=== PATIENT | female | born 1945 | race Asian ===

== ENCOUNTER 2018-10-11 09:19 | Emergency (ER) | payer OTHER ==
[~2018-10-11] VITALS: Ht 142.2 cm; Wt 45.4 kg
[2018-10-11 09:21] VITALS: BP 163/78
--- NOTE | 2018-10-11 09:22 | NUR ---
BIBA FOR FALL X1 HOUR AGO FROM [facility]. AAOX3. PT REPORTS FALLING WALKING TO BATHROOM, HITTING BACK OF HEAD. PT DENIES PAIN ON THE HEAD. PT STATES L HIP PAIN 6/10. PER [facility] NO LOSS OF CONSCIOUSNESS, GCS 13 IS PT BASELINE. PERRLA, BRISK 3MM. NO SOB NOTED. EQUAL BILATERAL STRENGTH TO UPPER AND LOWER EXTREMITIES. PLACED ON UNIVERSITY PROFESSOR. HOB UP. BED SIDE RAILS UP X1. ON LOW BED POSITION, LOCKED. ER MADE AWARE OF PT STATUS. WILL CONTINUE TO MONITOR.
--- NOTE | 2018-10-11 09:22 | NUR ---
Note undone in EDM - 10/11/18 at 1004 by [facility] BIBA FOR FALL X1 HOUR AGO FROM [facility]. AAOX3. PT REPORTS FALLING WALKING TO BATHROOM, HITTING BACK OF HEAD. PT DENIES ANY PAIN AT THIS TIME. PER [facility] NO LOSS OF CONSCIOUSNESS, GCS 13 IS PT BASELINE. PERRLA, BRISK 3MM. NO SOB NOTED. EQUAL BILATERAL STRENGTH TO UPPER AND LOWER EXTREMITIES. PLACED ON RECLAMATION ENGINEER. HOB UP. BED SIDE RAILS UP X1. ON LOW BED POSITION, LOCKED. ER MADE AWARE OF PT STATUS.
[2018-10-11] MEDS ORDERED: AMLO5TAB PO (09:29)
[2018-10-11] MEDS ORDERED: DOCU100C16 PO (09:33)
[2018-10-11] MEDS ORDERED: OLAN2.5T1 PO (09:33)
[2018-10-11] MEDS ORDERED: LATA7.5D OP (09:33)
[2018-10-11] MEDS ORDERED: ASCO500T45 PO (09:33)
[2018-10-11] MEDS ORDERED: VENL37.55 PO (09:33)
[2018-10-11] MEDS ORDERED: FERR325E14 PO (09:33)
--- NOTE | 2018-10-11 09:35 | NUR ---
DR WILD AT BEDSIDE FOR PT EVALUATION.
--- NOTE | 2018-10-11 10:23 | NUR ---
PT GOING TO RADIALOGY AT THIS TIME.
[2018-10-11 10:33] LABS: BASOPHILS % (AUTO) 0.5 % (0.0-2.0); EOSINOPHILS % (AUTO) 0.2 % (0.0-4.0); HEMATOCRIT 39.6 % (36-48); HEMOGLOBIN 13.3 g/dL (12.0-16.0); LYMPHOCYTES # (AUTO) 1.1 K/uL (2.5-16.5); LYMPHOCYTES % (AUTO) 17.3 % (20.5-51.1); MEAN CORPUSCULAR HEMOGLOBIN 31 pg (27-31); MEAN CORPUSCULAR HGB CONC 34 g/dL (33-37); MEAN CORPUSCULAR VOLUME 91.2 fL (80-94); MONOCYTES # (AUTO) 0.3 K/uL (0.8-1.0); MONOCYTES % (AUTO) 5.2 % (1.7-9.3); NEUTROPHILS # (AUTO) 5.1 K/uL (1.8-7.7); NEUTROPHILS % (AUTO) 76.8 % (42.2-75.2); PLATELET COUNT (AUTO) 189 K/uL (140-450); RED BLOOD CELL COUNT(AUTO) 4.34 MIL/uL (4.20-5.40); RED CELL DISTRIBUTION WIDTH 13.7 % (11.6-13.7); WHITE BLOOD COUNT (AUTO) 6.6 K/uL (4.8-10.8)
[2018-10-11 10:36] LABS: APPEARANCE,URINE CLEAR (CLEAR); BILIRUBIN,URINE NEGATIVE (NEGATIVE); BLOOD, URINE NEGATIVE (NEGATIVE); COLOR,URINE YELLOW (YELLOW); LEUKOCYTE ESTERASE ,URINE NEGATIVE (NEGATIVE); NITRITE, URINE NEGATIVE (NEGATIVE); PH,URINE 6.5 (5.0-9.0); UGLUCOSE 3+ (NEGATIVE)
[2018-10-11 10:39] LABS: ANION GAP 13.6 (8-16); CARBON DIOXIDE 28.3 mmol/L (21-32); CHLORIDE 102 mmol/L (98-107); CREATININE 0.8 mg/dL (0.6-1.3); GLUCOSE 274 mg/dL (74-106); POTASSIUM 3.9 mmol/L (3.5-5.1); SODIUM SERUM 140 mmol/L (136-145); UREA NITROGEN, BLOOD 16 mg/dL (7-18)
[2018-10-11 10:49] LABS: RBC,URINE 0-5 /HPF (0-5)
--- NOTE | 2018-10-11 10:55 | NUR ---
DR WILD WANTED TO KNOW IF PT USES OXYGEN AT THE FACILITY. CALLED [facility] AND SPOKE TO JEANETTE, TRIAGE CLINICIAN, TO VERIFY IF PT USES OXYGEN AT THE FACILITY. PER JEANETTE, PT DOESN'T USE ANY OXYGEN.
--- NOTE | 2018-10-11 11:19 | NUR ---
DR WILD NEEDS CLARIFICATION FOR PT'S HX OF ANY CRANIAL SX. CALLED [facility] AT [phone] AND SPOKE TO JEANETTE, RECOVERY UNIT OPERATOR. PER JEANETTE, PT ONLY HAS A MEDICAL HX OF CHRONIC DEPRESSION, DEMENTIA AND HTN.
--- NOTE | 2018-10-11 13:56 | NUR ---
CALLED AND GAVE REPORT TO CHARGE NURSE AT [facility]
--- NOTE | 2018-10-11 13:57 | NUR ---
[facility] at bedside for transfer to [facility] ER.
[2018-10-11 14:08] VITALS: BP 134/74
--- NOTE | 2018-10-11 14:08 | NUR ---
Patient to be transferred to [facility]. Is being transferred due to HIGHER LEVEL OF CARE. Receiving facility has accepting physician and available space. ER physician has signed transfer form. Patient or responsible constitution party has agreed to transfer and signed form. Patient belongings inventoried and will be sent with patient. Copy of nursing notes, lab reports, EKG, Physicians Orders and X-rays to be sent with patient. Report called to ER CHARGE NURSE at receiving facility. [facility] ambulance service has been called for transfer. ETA is 20MIN.
--- NOTE | 2018-10-14 15:56 | NUR ---
ADDENDUM: URINE CULTURE RESULTS . PATIENT TRANSFERRED TO [facility]
== END 2018-10-11 14:08 | disposition short-term general hospital (02) ==
LOC: MED 09:19
DX: S06.2X9A Diffuse traumatic brain injury with loss of consciousness of unspecified duration, initial encounter (principal); G91.8 Other hydrocephalus; I10 Essential (primary) hypertension; F03.90 Unspecified dementia, unspecified severity, without behavioral disturbance, psychotic disturbance, mood disturbance, and anxiety; Z79.899 Other long term (current) drug therapy; W19.XXXA Unspecified fall, initial encounter; Y93.89 Activity, other specified; Y92.89 Other specified places as the place of occurrence of the external cause; Y99.8 Other external cause status
CPT/HCPCS: 36415; 70450; 71045; 72125; 73502; 80048; 81001; 82550; 85025; 87086; 87186; 99291

== ENCOUNTER 2019-07-16 18:49 | Emergency (ER) | payer OTHER ==
[~2019-07-16] VITALS: Ht 144.8 cm; Wt 46.7 kg
[~2019-07-16 18:49] MED LIST: AMLO5TAB PO; ASCO500T45 PO; DOCU100C16 PO; FERR325E14 PO; LATA7.5D OP; OLAN2.5T1 PO; VENL37.55 PO
--- NOTE | 2019-07-16 18:49 | NUR ---
PATIENT CURRY ([facility]) TO BED 1.
[2019-07-16 18:53] VITALS: BP 139/82
--- NOTE | 2019-07-16 19:15 | NUR ---
REPORT RECEIVED FROM BRENDON DOVER
--- NOTE | 2019-07-16 19:20 | NUR ---
73 YEAR OLD MALE COMPLAINS OF LEFT FOREHEAD ABRASION, PATIENT STATES THAT SHE WAS TRYING TO GO TO BATHROOM AND FELL DOWN X 1 HOUR AGO. VISIBLE REDDENED ABRASION ON LEFT SIDE OF FOREHEAD. PATIENT AOX1 TO NAME, GCS 14 (E4,V4,M6). PATIENT SPEECH DELAYED, LETHARGIC. WHEN ASKED QUESTION BY SENIOR INTERIOR DESIGNER PATIENT WOULD NOT RESPOND PROPERLY AND KEEP STATING "I FELL ONTO GROUND," UNABLE TO OBTAIN PMH, MEDICATIONS, OR ALLERGIES. BP 139/82, HR 83, SPO2 95%, RR 18. PATIENT ALERT AND AWAKE, BREATHING EVEN AND UNLABORED, SKIN WARM AND DRY. BED IN LOWEST POSITION, LOCKED, BED RAIL UPX2. INTERPRETATION SERVICE USED FOR CANTONESE LANGUAGE.
--- NOTE | 2019-07-16 19:25 | NUR ---
DR MAHARAJ AT BEDSIDE, STATES HE WANTS CODE BRAIN.
--- NOTE | 2019-07-16 19:35 | NUR ---
PATIENT TAKEN TO CT SCAN
--- NOTE | 2019-07-16 19:50 | NUR ---
PATIENT X RAY AT BEDSIDE
--- NOTE | 2019-07-16 19:55 | NUR ---
BLOOD LABS DRAWN FOR PATIENT
[2019-07-16 20:25] LABS: BASOPHILS % (AUTO) 0.3 % (0.0-2.0); EOSINOPHILS % (AUTO) 0.2 % (0.0-4.0); HEMATOCRIT 38.9 % (36-48); HEMOGLOBIN 12.7 g/dL (12.0-16.0); LYMPHOCYTES # (AUTO) 1.4 K/uL (2.5-16.5); MEAN CORPUSCULAR HEMOGLOBIN 30 pg (27-31); MEAN CORPUSCULAR HGB CONC 33 g/dL (33-37); MEAN CORPUSCULAR VOLUME 93.4 fL (80-94); MONOCYTES # (AUTO) 0.4 K/uL (0.8-1.0); MONOCYTES % (AUTO) 4.4 % (1.7-9.3); NEUTROPHILS # (AUTO) 8.3 K/uL (1.8-7.7); NEUTROPHILS % (AUTO) 81.1 % (42.2-75.2); PLATELET COUNT (AUTO) 236 K/uL (140-450); RED BLOOD CELL COUNT(AUTO) 4.16 MIL/uL (4.20-5.40); RED CELL DISTRIBUTION WIDTH 14.3 % (11.6-13.7); WHITE BLOOD COUNT (AUTO) 10.2 K/uL (4.8-10.8)
[2019-07-16 20:46] LABS: PROTHROMBIN TIME 9.3 secs (10.8-13.4)
[2019-07-16 20:53] LABS: ALBUMIN 3.4 g/dL (3.4-5.0); ANION GAP 10.2 (8-16); ASPARTATE AMINOTRANSFERASE 16 U/L (15-37); CARBON DIOXIDE 28.7 mmol/L (21-32); CHLORIDE 105 mmol/L (98-107); CREATININE 0.7 mg/dL (0.6-1.3); GLUCOSE 181 mg/dL (74-106); POTASSIUM 3.9 mmol/L (3.5-5.1); SODIUM SERUM 140 mmol/L (136-145); TOTAL BILIRUBIN 0.2 mg/dL (0.0-1.0); UREA NITROGEN, BLOOD 9 mg/dL (7-18)
--- NOTE | 2019-07-16 21:00 | NUR ---
PATIENT ALERT AND AWAKE, BREATHING EVEN AND UNLABORED
[2019-07-16 21:17] LABS: APPEARANCE,URINE HAZY (CLEAR); BILIRUBIN,URINE NEGATIVE (NEGATIVE); BLOOD, URINE 1+ (NEGATIVE); COLOR,URINE YELLOW (YELLOW); LEUKOCYTE ESTERASE ,URINE 3+ (NEGATIVE); NITRITE, URINE NEGATIVE (NEGATIVE); PH,URINE 7.5 (5.0-9.0); UGLUCOSE TRACE (NEGATIVE)
[2019-07-16 21:21] LABS: HYALINE CASTS, URINE 0-10 /LPF (None Seen); WBC,URINE 16-25 (MOD) /HPF (0-5)
--- NOTE | 2019-07-16 21:30 | NUR ---
PATIENT OK FOR DISCHARGE PER DR MAHARAJ
--- NOTE | 2019-07-16 21:49 | NUR ---
[facility] CALLED, STATED THEY WILL MEDICAL RECORDS ANALYST PATIENT AT [id number]
--- NOTE | 2019-07-16 21:58 | NUR ---
PATIENT FAMILY CALLED TWICE AND LEFT VOICE MESSAGE, UNABLE TO CONTACT
--- NOTE | 2019-07-16 22:56 | NUR ---
PATIENT ALERT AND AWAKE, BREATHING EVEN AND UNLABORED
--- NOTE | 2019-07-16 23:34 | NUR ---
PATIENT ALERT AND AWAKE, BREATHING EVEN AND UNLABORED
--- NOTE | 2019-07-17 00:15 | NUR ---
RECEIVED REPORT FROM ELVIS DOVER, BACK FROM BREAK
--- NOTE | 2019-07-17 00:26 | NUR ---
PATIENT RESTING WITH EYES CLOSED, BREATHING EVEN AND UNLABORED
--- NOTE | 2019-07-17 01:40 | NUR ---
PATIENT ALERT AND AWAKE, BREATHING EVEN AND UNLABORED
--- NOTE | 2019-07-17 01:50 | NUR ---
PATIENT ASSISTED IN EATING FOOD AND WATER
--- NOTE | 2019-07-17 03:44 | NUR ---
PATIENT ALERT AND AWAKE, BREATHING EVEN AND UNLABORED
[2019-07-17 04:44] VITALS: BP 140/75
--- NOTE | 2019-07-17 04:44 | NUR ---
Patient discharged with v/s stable. Written and verbal after care instructions ABOUT HEAD INJURY AND URINARY TRACT INFECTION given and explained. Patient alert, oriented and verbalized understanding of instructions. Ambulance Transport with to snf. All questions addressed prior to discharge. ID band removed. Patient advised to follow up with PMD. Rx of KEFLEX given. Patient educated on indication of medication including possible reaction and side effects. Opportunity to ask questions provided and answered.
== END 2019-07-17 04:44 ==
LOC: MED 18:49
DX: S09.90XA Unspecified injury of head, initial encounter (principal); N39.0 Urinary tract infection, site not specified; I10 Essential (primary) hypertension; Z79.899 Other long term (current) drug therapy; W19.XXXA Unspecified fall, initial encounter; Y93.89 Activity, other specified; Y92.098 Other place in other non-institutional residence as the place of occurrence of the external cause; Y99.8 Other external cause status
CPT/HCPCS: 36415; 70450; 71045; 72125; 80053; 81001; 85025; 85610; 87086; 99284; Q0092

== ENCOUNTER 2022-06-19 14:35 | Inpatient (IN) | payer OTHER, MEDICAID ==
[~2022-06-19] VITALS: Ht 149.9 cm; Wt 40.8 kg
[~2022-06-19 14:35] MED LIST changes: -ASCO500T45 PO; +ASCO500T95 PO; +DOCU-464 PO; -DOCU100C16 PO
--- NOTE | 2022-06-19 14:35 | NUR ---
BIBA BLS TO ER BED 3
--- NOTE | 2022-06-19 14:39 | NUR ---
PT RECEIVED, CARE ASSUMED. PT IS OBTUNDED, UNABLE TO MAKE NEEDS KNOWN. COGNITION IMAPARED.. NOTED LOW BP, . CONNECTED TO TELE MONITOR: SR 78. PLACED PT ON [place]G POSITION. WILL CONTINUE TO MONITOR
[2022-06-19 14:43] VITALS: BP 126/76
[2022-06-19] MEDS ORDERED: DEXT 5% /NACL 0.9% 1,000 ML IV ONE ×2 (15:05→17:10)
[2022-06-19 15:38] LABS: BASOPHILS # (AUTO) 0.1 K/uL (0.00-0.22); BASOPHILS % (AUTO) 1.1 % (0.0-2.0); EOSINOPHILS % (AUTO) 0.2 % (0.0-4.0); HEMATOCRIT 43.2 % (36-48); HEMOGLOBIN 13.9 g/dL (12.0-16.0); LYMPHOCYTES # (AUTO) 1.9 K/uL (2.5-16.5); LYMPHOCYTES % (AUTO) 22.3 % (20.5-51.1); MEAN CORPUSCULAR HEMOGLOBIN 31 pg (27-31); MEAN CORPUSCULAR HGB CONC 32 g/dL (33-37); MEAN CORPUSCULAR VOLUME 94.8 fL (80-94); MONOCYTES # (AUTO) 0.6 K/uL (0.8-1.0); NEUTROPHILS # (AUTO) 5.9 K/uL (1.8-7.7); NEUTROPHILS % (AUTO) 69.4 % (42.2-75.2); PLATELET COUNT (AUTO) 188 K/uL (140-450); RED BLOOD CELL COUNT(AUTO) 4.55 MIL/uL (4.20-5.40); RED CELL DISTRIBUTION WIDTH 14.4 % (11.6-13.7); WHITE BLOOD COUNT (AUTO) 8.5 K/uL (4.8-10.8)
--- NOTE | 2022-06-19 16:05 | NUR ---
PT ON [place] POSITION, IVF BOLUS RUNNING, WILL CONTINUE TO MONITOR
[2022-06-19 16:06] LABS: ALBUMIN 3.2 g/dL (3.4-5.0); ASPARTATE AMINOTRANSFERASE 12 U/L (15-37); CARBON DIOXIDE 28.6 mmol/L (21-32); CHLORIDE 127 mmol/L (98-107); CREATININE 0.6 mg/dL (0.6-1.3); GLUCOSE 116 mg/dL (74-106); POTASSIUM 3.6 mmol/L (3.5-5.1); TOTAL BILIRUBIN 0.6 mg/dL (0.0-1.0); UREA NITROGEN, BLOOD 39 mg/dL (7-18)
[2022-06-19 16:17] LABS: SODIUM SERUM 164 mmol/L (136-145)
[2022-06-19 16:36] LABS: BILIRUBIN,URINE NEGATIVE (NEGATIVE); BLOOD, URINE NEGATIVE (NEGATIVE); LEUKOCYTE ESTERASE ,URINE NEGATIVE (NEGATIVE); NITRITE, URINE NEGATIVE (NEGATIVE); UGLUCOSE NEGATIVE (NEGATIVE)
[2022-06-19 16:51] LABS: APPEARANCE,URINE CLEAR (CLEAR)
[2022-06-19 16:52] LABS: COLOR,URINE YELLOW (YELLOW)
[2022-06-19] MEDS ORDERED: NOREPINEPHRINE 4 MG in DEXTROSE 5% 250 ML IV ONE (17:30)
[2022-06-19] MEDS ORDERED: NOREPINEPHRINE 4 MG/4 ML VIAL IV ONE (18:03)
--- NOTE | 2022-06-19 18:17 | NUR ---
STARTED LEVAPHED DRIP @ 5 MCG. WILL CONTINUE TO MONITOR
--- NOTE | 2022-06-19 19:13 | NUR ---
KEEP ON PRESSORS UNTIL FAMILY ARRIVES, THEN SWITCH TO COMFORT MEASURES PER .
--- NOTE | 2022-06-19 19:32 | NUR ---
Assumed care of pt and pt is in bed resting with no s/s of distress. Pt responds to painful stimuli. Pt not responding to any questions. Has heel floaters in place. A 20g IV on right hand no infiltration noted. Has Levophed running at 5mcg/min. BP at 79/25. pt is DNR. Family in route.
--- NOTE | 2022-06-19 20:30 | NUR ---
FAMILY MEMBERS ARRIVED AND HAVE BEEN BROUGHT BACK, NEPHEW STATES OTHER FAMILY MEMBERS WILL BE COMING BY
--- NOTE | 2022-06-19 22:03 | NUR ---
SPOKE TO MANUEL AND FAMILY MEMBERS ABOUT STARTING COMFORT MEASURES. DR. VELEZ AWARE. ORDERS CARRIED OUT.
--- NOTE | 2022-06-19 22:09 | NUR ---
PER PRESSORS CAN BE D/C, START MORPHINE DRIP. NO OTHER ORDERS.
[2022-06-19] MEDS ORDERED: MORPHINE SULFATE 10 MG/ML VIAL ONE (22:37)
--- NOTE | 2022-06-19 22:39 | NUR ---
Patient will be admitted to care of Tiffanie DOVER. Admited to TELE. Will go to room 128A. Belongings list completed. Report to Tiffanie DOVER.
--- NOTE | 2022-06-20 00:08 | NUR ---
RECEIVED FROM ED COMFORT MEASURES ONLY STAGE II AT [place] PICTURE TAKEN MORPHINE GTT IN PLACE WILL CONTINUE TO MONITOR AND ASSESS
[2022-06-20 04:00] VITALS: BP 115/70
--- NOTE | 2022-06-20 06:46 | NUR ---
COMFORT MEASURES OBSERVED NO SIGNIFICANT CHANGES NOTED AT THIS TIME
[2022-06-20 08:00] VITALS: BP 139/76
[2022-06-20 12:00] VITALS: BP 143/67
--- NOTE | 2022-06-20 12:00 | NUR ---
DISCHARGE PLANNING: PATIENT IS A 76 YEAR OLD FEMALE ADMITTED TO THE [facility]/ED ON 06/19/2022 DUE TO PATIENT DECLINED ON MENTAL STATUS AND LEVEL OF CARE. PATIENT WAS ADMITTED WITH ONLY COMFORT MEASURES. SW ATTEMPTED TO MEET WITH PATIENT AT BEDSIDE TO DISCUSS AND GATHER HER COLLATERAL INFORMATION. PATIENT WAS NOT AWAKE AND ALERT UNABLE TO PROVIDE HER OWN INFORMATION. THEREFORE; SW LEFT ROOM AND CONTACTED PATIENT'S NIECES VIA TELEPHONIC CALL MANUEL BARNES AT AND GERMÁN OSBORNE AT . SW DISCUSS AND GATHER PATIENT'S COLLATERAL INFORMATION, PER PATIENT'S NIECES SHE HAS BEEN LIVING AT [facility], [place] FOR ABOUT 4 YEARS UNDER THE CARE AND MONITORING OF THE ASSISTING LIVING STAFF, WITH MEDICATIONS, SAFETY AND MEMORY CARE, ALSO WITH [employer]URANCE WITH MEDICAL CARE AND THE NIECES AND FAMILY REPORTED BEEN REALLY INVOLVED WITH PATIENT CARE. PER NIECES REPORT PATIENT DECLINED IN LEVEL OF CARE VERY QUICK IN A MATTER OF DAYS AND PATIENT WHEN SHE ADMITTED WAS PLACE IN COMFORT MEASURES. NELDA DISCUSSED WITH NIECES AND FAMILY ABOUT MORTUARY OF THEIR CHOICE AND PLAN FOR ARRANGEMENTS, SW EXPLAINED TO NIECES THAT [facility] IS A SMALL H[facility]PITAL AND THAT PATIENT MUST BE [employer] [employer] AFTER PASSING AND IF THEY WILL NEED RESOURCES PROVIDED BY NELDA. PER PATIENT'S NIECES, PATIENT HAS ALREADY PURCHASE A PLOT AT [employer] AND THEY WILL BE PICKING PATIENT. NELDA THANKED STAPLETON OF PATIENT'S NIECES FOR ALL THEIR INFORMATION AND ENDED THE CALL. NELDA/UTE WILL FOLLOW UP NEEDED.
[2022-06-20] MEDS: MORPHINE SULFATE 50 MG in NACL 0.9% 45 ML IV PRN (15:40)
[2022-06-20 16:00] VITALS: BP 109/58
--- NOTE | 2022-06-20 17:43 | NUR ---
PER MD NOTE: THE PATIENT'S FAMILY DECIDED TO MAKE PATIENT DNR AND PT ON COMFORT MEASURES ONLY AT THIS TIME WILL DISCONTINUE NUTRITION ASSESSMENTS AND FOLLOW [employer] RD WILL REMAIN AVAILABLE FOR CONSULTS NEEDS AND WILL RESTART NUTRITION ASSESSMENT IF REQUESTED [address]
--- NOTE | 2022-06-20 19:10 | NUR ---
REPORT GIVEN TO PM NURSE FOR CONTINUITY OF CARE. PT IS RESTING IN BED, RESPIRATIONS EVEN AND UL ON RA, NO S/S OF PAIN/DISCOMFORT. MORPHINE DRIP INFUSING TO RH PER PROTOCOL.
[2022-06-20 20:00] VITALS: BP 87/47
--- NOTE | 2022-06-20 20:30 | NUR ---
RECEIVED IN BED TURNED AND REPOSTIONED BREATHING UNLABORED AT THIS TIME AND SLOW AND SHALLOW O2 2L NC APPLIED FOR COMFORT WILL CONTINUE TO MOITOR AND ASSESS
[2022-06-21] VITALS: BP 85/48
[2022-06-21 04:00] VITALS: BP 83/42
--- NOTE | 2022-06-21 07:50 | NUR ---
RECEIVED PATIENT, AOX1 NONRESPONSIVE TO PAINFUL AND VERBAL STIMULI, SINUS TACHY, RESPIRATIONS AGONAL. PATIENT APPEARS COMFORTABLE WITH NO SIGNS OF DISTRESS. MORPHINE DRIP INFUSING AT 2 MG/HOUR. REPOSITIONED PATIENT, ORAL CARE PROVIDED. WILL CONTINUE TO MONITOR.
[2022-06-21 08:00] VITALS: BP 112/79
[2022-06-21 12:00] VITALS: BP 71/41
--- NOTE | 2022-06-21 12:12 | NUR ---
PT. IS ON COMFORT CARE , MORPHINE DRIP. PT. WITH LOW BRENNON SCALE AT HIGH RISK, SACRALCOCCYX PRESSURE INJURY 1X2CM WOUND BED MOIST, PURPLE IN COLOR, NO ODOR.TX PER PROTOCOL. -APPLY FOAM DRESSING TO SACRALCOCCYX QD AND PRN IF SOILING -POSITIONING: TURN AND REPOSITION PATIENT Q 2H OR SOONER USE PILLOWS TO KEEP BONY PROMINENCES FROM DIRECT CONTACT WITH SURFACES USE REPOSITIONING WEDGES TO PROVIDE 30-DEGREE ANGLE FOR SIDE LYING POSITIONS OFFLOADING OR FOAM DRESSING TO ALL TUBING TO PREVENT MEDICAL DEVICES RELATED PRESSURE INJURY -RE-EVALUATING AND MANAGING INCONTINENCE MONITOR SKIN CONDITION DURING POSITION CHANGE DO NOT MASSAGE REDNESS, BONY PROMINENCES FREQUENT DWIGHT-CARE AND PROVIDE BARRIER CREAMS PRN IF SOILING MOISTURE CONTROL BY OFFER BED MINA/URINAL /ABSORBENT PAD TO WICK AND HOLD MOISTURE KEEP SKIN DRY AND PROTECT FROM FRICTION -MANAGE FRICTION/SHEAR/MOBILITY KEEP HOB AT THE LOWEST LEVEL OF ELEVATION NO MORE THAN 30 DEGREE UNLESS OTHERWISE CONTRAINDICATED USE LIFT SHEET OR TRANSFER DEVICE TO MOVE PATIENT AND PREVENT LATERAL SHEER. PROTECT HEELS, ELBOWS BONY PROMINENCES WITH SKIN BERRIES OR FOAM DRESSING IF EXPOSED TO FRICTION OFFLOAD BILATERAL HEELS BY PLACING PILLOWS UNDER CALVES AT ALL TIMES, UNLESS OTHERWISE CONTRAINDICATED -PRESSURE REDISTRIBUTION SURFACE THERAPY FRANKLIN ISOFLEX MATTRESS -NUTRITION: PLEASE FOLLOW RD RECOMMENDATIONS AND OFFER NUTRITION SUPPLEMENTS IF ORDERED. PLEASE CONTACT WOUND CARE NURSE FOR ANY QUESTION AND CHANGE OF WOUND CONDITION.
[2022-06-21] MEDS ORDERED: FOAM DRESSING TP PRN (12:15)
--- NOTE | 2022-06-21 12:30 | NUR ---
PATIENT APPEARS COMFORTABLE, MORPHINE DRIP STILL INFUSING AT 2 ML/HOUR. ON 2L NASAL CANNULA FOR COMFORT. NO SIGNS OF DISTRESS NOTED.
[2022-06-21] MEDS ORDERED: FOAM DRESSING TP SCH (13:00)
[2022-06-21 16:00] VITALS: BP 66/45
[2022-06-21] MEDS: MORPHINE SULFATE 50 MG in NACL 0.9% 45 ML IV PRN (16:30)
--- NOTE | 2022-06-21 16:30 | NUR ---
PATIENT APPEARS COMFORTABLE. NIECE AT BEDSIDE. RESPIRATIONS AGONAL, IV MORPHINE DRIP CHANGED, STILL RUNNING AT 2 MG/HOUR PER PROTOCOL. NEW IV PLACED TO RIGHT FOREARM. CLEANED AND REPOSITIONED.
--- NOTE | 2022-06-21 18:37 | NUR ---
PATIENT APPEARS COMFORTABLE, MORPHINE AT 2 ML/HOUR, RR AROUND 6-8 PER MINUTE. WILL ENDORSE TO NIGHT RN.
--- NOTE | 2022-06-21 19:30 | NUR ---
RECEIVED REPORT FROM DAY SHIFT NURSE. PATIENT APPEARS COMFORTABLE WITH MORPHINE DRIP AT 2ML/HR. RESPIRATION 14. NO S/S OF PAIN LIKE GRIMACING, MOANING. ALL SAFETY PRECAUTIONS ARE IN PLACE. HEAD OF BED ELEVATED. BED WHEELS LOCKED. WILL CONTINUE TO MONITOR PATIENT.
[2022-06-21 20:00] VITALS: BP 59/42
[2022-06-22] VITALS: BP 60/41
--- NOTE | 2022-06-22 02:58 | NUR ---
PATIENT SLEEPING. NO S/S OF RESPIRATORY DISTRESS. BREATHING NORMAL WITH SYMMETRICAL RISE AND FALL OF THE CHEST.
[2022-06-22 04:00] VITALS: BP 55/41
[2022-06-22] MEDS: MORPHINE SULFATE 50 MG in NACL 0.9% 45 ML IV PRN ×2 (06:46→13:38)
--- NOTE | 2022-06-22 06:50 | NUR ---
PATIENT HR 120 INCREASED MORPHINE RATE TO 4MG/HR.
--- NOTE | 2022-06-22 07:20 | NUR ---
ENDORSED PATIENT TO MORNING SHIFT NURSE SHANTANU FOR CONTINUITY OF CARE.
--- NOTE | 2022-06-22 07:28 | NUR ---
GOT REPORT FROM THE NIGHT NURSE, PT BREATHING AGONAL, MORPHINE DRIP IS MAINTAINED, [id number]
[2022-06-22 08:00] VITALS: BP 59/37
--- NOTE | 2022-06-22 09:30 | NUR ---
increased morphine by 2mg now it is running 6mg c\o heart rate 122. pt coniine to breath 20 a minute.[email or web address]
[2022-06-22 12:00] VITALS: BP 90/62
--- NOTE | 2022-06-22 13:00 | NUR ---
pt is breathing 12\minutes , family member at bed side, morphine infusing as ordered.[email or web address]
--- NOTE | 2022-06-22 13:42 | NUR ---
the heart rate is 121 so increased the morphine drip to 8mg. pt resting comfortable.[email or web address]
[2022-06-22 16:00] VITALS: BP 60/40
--- NOTE | 2022-06-22 16:05 | NUR ---
PT IS RESTING BREATHING AGONAL , MORPHINE IS INFUSING ORDERED, NO ONE AT BEDSIDE.[email or web address]
--- NOTE | 2022-06-22 17:16 | NUR ---
PT THE WHOLE PROTOCOL DONE FAMILY INFORMED, PT CLEANED AND BAGGED WITH ID .[id number]
--- NOTE | 2022-06-22 17:45 | NUR ---
HEARING AID TECHNICIAN CALLED TO THE PATIENTS BEDSIDE TO PRONOUNCE TIME OF . PATIENT PULSELESS, NO RESPIRATIONS, PATIENT PRONOUNCED AST 1716.
== END 2022-06-22 20:40 | DRG 640 ==
LOC: MED 14:35 → MTU 22:08 → MMU 22:27
DX: E87.0 Hyperosmolality and hypernatremia (principal); E43 Unspecified severe protein-calorie malnutrition; Z68.1 Body mass index [BMI] 19.9 or less, adult; F03.93 Unspecified dementia, unspecified severity, with mood disturbance; R62.7 Adult failure to thrive; R57.1 Hypovolemic shock; Z20.822 Contact with and (suspected) exposure to COVID-19; I10 Essential (primary) hypertension; F32.A Depression, unspecified; E87.8 Other disorders of electrolyte and fluid balance, not elsewhere classified; D50.9 Iron deficiency anemia, unspecified; K59.00 Constipation, unspecified; H40.9 Unspecified glaucoma; I46.9 Cardiac arrest, cause unspecified; Z85.3 Personal history of malignant neoplasm of breast; Z86.73 Personal history of transient ischemic attack (TIA), and cerebral infarction without residual deficits
CPT/HCPCS: 36415; 71045; 80053; 81003; 83605; 84484; 85025; 87040; 93005; 96374; 99291; J2270; J3490